=== PATIENT | female | born 1945 | race Caucasian/White ===

== ENCOUNTER 2024-09-29 08:45 | Outpatient (CLI) | payer MEDICARE, BC, SELFPAY | END 2024-09-29 08:46 | disposition home or self-care (01) | LOC: AMB 09-30 14:03 | PROVIDERS: Visit Provider Family Medicine | DX: S79.911A Unspecified injury of right hip, initial encounter (principal); V86.69XA Passenger of other special all-terrain or other off-road motor vehicle injured in nontraffic accident, initial encounter; Y92.488 Other paved roadways as the place of occurrence of the external cause | CPT/HCPCS: A0425; A0427 ==